=== PATIENT | male | born 2000 | race Caucasian/White ===

== ENCOUNTER 2024-01-10 19:42 | Emergency (ER) | payer OTHER ==
[2024-01-10] MEDS: Fluorescein 1 MG Ophth Strip EYELF ONE (20:12)
[2024-01-10] MEDS: Proparacaine 0.5% Ophth Soln 15 ML Bottle EYELF ONE (20:12)
[2024-01-10] MEDS: Take Home: Gentamicin 0.3% Ophth Soln 5 ML, 1 Bottle Pack EYEBOTH ONE (20:13)
== END 2024-01-10 20:17 | disposition home or self-care (01) ==
LOC: VM.ED 19:42
DX: S05.01XA Injury of conjunctiva and corneal abrasion without foreign body, right eye, initial encounter (principal); X58.XXXA Exposure to other specified factors, initial encounter
CPT/HCPCS: 99283; A9270; J3490